=== PATIENT | male | born 2000 | race African-American/Black ===

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

== ENCOUNTER → 2022-08-26 | Outpatient (CLI) | payer OTHER | LOC: M PLAIMG 15:39 | PROVIDERS: ATTEND Family Medicine | DX: M54.50 Low back pain, unspecified (principal) ==

== ENCOUNTER → 2024-05-22 | Outpatient (CLI) | payer OTHER | LOC: M SOG 07:54 | PROVIDERS: ATTEND Physician Assistant | DX: M79.642 Pain in left hand (principal) ==